=== PATIENT | female | born 1965 | race Hispanic/Latino ===

== ENCOUNTER 2018-07-11 13:41 | Emergency (ER) | payer BC ==
[2018-07-11 14:28] LABS: #Eosinphils 0.1 thou/uL (0.0-0.7); #Lymphocytes 2.9 thou/uL (1.20-3.40); #Monocytes 0.6 thou/uL (0.11-0.59); %Basophils 0.3 % (0.0-1.0); %Eosinophils 0.9 % (0.0-10.0); %Lymphocytes 27.1 % (21.0-51.0); %Monocytes 5.9 % (0.0-10.0); %Neutrophils 65.7 % (42.0-75.0); Hemoglobin 13.3 g/dL (12.0-16.0); Mean Corpuscular HGB CONC 33.5 g/dL (32.0-36.0); Mean Corpuscular Hemoglobin 31.1 pg (27.0-31.0); Mean Corpuscular Volume 92.6 fL (78.0-98.0); Mean Platelet Volume 7.5 fL (7.4-10.4); Platelet Count 364 thou/uL (130-400); RBC Distribution Width 12.2 % (11.5-14.5); Red Blood Cell (RBC) Count 4.29 mill/uL (4.20-5.40); White Blood Cell (WBC) Count 10.7 thou/uL (4.8-10.8)
[2018-07-11 14:50] LABS: ALT (SGPT) 29 U/L (8-55); AST (SGOT) 27 U/L (5-34); Albumin 3.9 g/dL (3.5-5.0); Alkaline Phosphatase 131 U/L (40-150); Anion Gap 14 mmol/L (10-20); BUN (Urea Nitrogen) 16 mg/dL (9.8-20.1); Bilirubin, Total 0.3 mg/dL (0.2-1.2); Calc. Creatinine Clearance 0 mL/min (70-130); Calcium 8.7 mg/dL (7.8-10.44); Carbon Dioxide 30 mmol/L (22-29); Chloride 100 mmol/L (98-107); Estimated GFR-MDRD 69; Globulin 3.6 g/dL (2.4-3.5); Glucose 198 mg/dL (70-105); Potassium 3.1 mmol/L (3.5-5.1); Protein, Total 7.5 g/dL (6.0-8.3); Sodium 141 mmol/L (136-145)
[2018-07-11] MEDS ORDERED: methylPREDNISolone Sod Succ/PF 125 MG/2 ML VIAL ONE (15:24)
== END 2018-07-11 15:56 | disposition home or self-care (01) ==
LOC: ERS 13:41
DX: R51 Headache (principal); I10 Essential (primary) hypertension; E11.9 Type 2 diabetes mellitus without complications; Z79.84 Long term (current) use of oral hypoglycemic drugs; Z79.82 Long term (current) use of aspirin; Z79.899 Other long term (current) drug therapy
CPT/HCPCS: 80053; 84484; 85025; 85652; 93005; 96374; J2930

== ENCOUNTER 2020-06-01 07:58 | Observation (INO) | payer BC ==
--- NOTE | 2020-06-01 08:40 | RAD ---
Exam: Chest one view HISTORY:Chest pain. Hypertension. Comparison: 10/21/2014 FINDINGS: Cardiac silhouette: Normal Aorta: Unremarkable Pulmonary vessels: Normal Costophrenic angles: Clear LUNGS: No masses or consolidation. Pneumothorax: None Osseous abnormalities: None IMPRESSION: No acute cardiopulmonary process.
[2020-06-01] MEDS ORDERED: Aspirin 325 MG TAB ONE (08:46)
[2020-06-01 09:00] LABS: #Basophils 0.1 thou/uL (0.0-0.2); #Eosinphils 0.1 thou/uL (0.0-0.7); #Lymphocytes 2.6 thou/uL (1.20-3.40); #Monocytes 0.8 thou/uL (0.11-0.59); #Neutrophils 9.2 thou/uL (1.40-6.50); %Basophils 0.7 % (0.0-1.0); %Eosinophils 1.1 % (0.0-10.0); %Lymphocytes 20.4 % (21.0-51.0); %Neutrophils 71.7 % (42.0-75.0); Hemoglobin 15.3 g/dL (12.0-16.0); Mean Corpuscular HGB CONC 33.4 g/dL (32.0-36.0); Mean Corpuscular Hemoglobin 32.1 pg (27.0-31.0); Mean Corpuscular Volume 96.1 fL (78.0-98.0); Mean Platelet Volume 8.3 fL (7.4-10.4); Platelet Count 333 thou/uL (130-400); RBC Distribution Width 11.8 % (11.5-14.5); Red Blood Cell (RBC) Count 4.76 mill/uL (4.20-5.40); White Blood Cell (WBC) Count 12.8 thou/uL (4.8-10.8)
[2020-06-01 09:22] LABS: Anion Gap 15 mmol/L (10-20); BUN (Urea Nitrogen) 18 mg/dL (9.8-20.1); Bilirubin, Total 0.8 mg/dL (0.2-1.2); Calc. Creatinine Clearance 0 mL/min (70-130); Calcium 8.9 mg/dL (7.8-10.44); Carbon Dioxide 29 mmol/L (22-29); Chloride 98 mmol/L (98-107); Estimated GFR-MDRD 85; Glucose 123 mg/dL (70-105); Potassium 3.1 mmol/L (3.5-5.1); Sodium 139 mmol/L (136-145)
[2020-06-01 09:23] LABS: ALT (SGPT) 29 U/L (8-55); AST (SGOT) 27 U/L (5-34); Albumin 4.1 g/dL (3.5-5.0); Alkaline Phosphatase 109 U/L (40-110); CK (CPK) 120 U/L (29-168); Globulin 3.7 g/dL (2.4-3.5); Lipase 36 U/L (8-78); Protein, Total 7.8 g/dL (6.0-8.3)
[2020-06-01] MEDS ORDERED: ADENOSINE 60 MG/20 ML VIAL ONE (09:39)
[2020-06-01] MEDS ORDERED: Potassium Chloride 20 MEQ TAB PO SCH (10:46)
[2020-06-01 12:14] LABS: Troponin I Less than 0.010 ng/mL (< 0.028)
--- NOTE | 2020-06-01 12:38 | PDOC.HHP ---
Hospitalist HPI - History of Present Illness Chest pain History of Present Illness: This is a 54-year-old female patient with a history of diabetes mellitus hypertension presenting with chest pain with left arm numbness. She is [place]-speaking. History was taken using a telemetry property management assistant She notes the symptoms first occurred a day ago and recurred this morning. Chest pain was brief up to 3/10 in intensity located in the lower retrosternal area, however radiated to her arm. This was of concern to her so she came to the ED for further evaluation. She did have associated nausea and minute vomi ting. She denied cough wheeze previous sore throat no swelling of extremities. At presentation her vitals are within normal limits, troponin, BMP were within normal limits. She was hypokalemic with potassium of 3.1, follow-up magnesium was 1.2. She had a mild leukocytosis of 12.8. Chest x-ray showed no acute cardiopulmonary process. Given her risk for coronary disease decision was made to admit. Hospitalist team was consulted for admission Hospitalist ROS - Review of Systems Constitutional: denies: fever, chills, sweats Respiratory: denies: cough, shortness of breath, hemoptysis, SOB with excertion Cardiovascular: reports: chest pain. denies: palpitations, orthopnea, par oxysmal noc. dyspnea Gastrointestinal: reports: nausea, vomiting. denies: abdominal pain, diarrhea Genitourinary: denies: dysuria, frequency, incontinence Skin: denies: rash, lesions, bruising Hospitalist History - Past Medical History Cardiac: reports: HTN Endocrine: reports: Diabetes - Past Surgical History Past Surgical History: reports: , Hernia Repair - Family History Family History: reports: diabetes mellitus - Social History Smoking Status: Never smoker Alcohol: reports: None Living Situation: With Family - Exam General Appearance: awake alert ENT: normocephalic atraumatic, moist mucosa Heart: no murmur, no gallops, normal peripheral pulses Respiratory: no wheezes, no rales, no ronchi, no tachypnea Gastrointestinal: soft, non-tender, non-distended, normal bowel sounds Extremities: no cyanosis, no clubbing, no edema Neurological: cranial nerve grossly intact, no focal deficits Musculoskeletal: normal tone Psychiatric: normal affect, normal behavior, A&O x 3 Hospitalist Results - Labs Result Diagrams: 06/01/20 08:31 06/01/20 08:31 Lab results: WBC 12.8 thou/uL (4.8-10.8) H 06/01/20 08:31 Hgb 15.3 g/dL (12.0-16.0) 06/01/20 08:31 Hct 45.7 % (36.0-47.0) 06/01/20 08:31 MCV 96.1 fL (78.0-98.0) 06/01/20 08:31 Plt Count 333 thou/uL (130-400) 06/01/20 08:31 Neutrophils % 71.7 % (42.0-75.0) 06/01/20 08:31 Sodium 139 mmol/L (136-145) 06/01/20 08:31 Potassium 3.1 mmol/L (3.5-5.1) L 06/01/20 08:31 Chloride 98 mmol/L (98-107) 06/01/20 08:31 Carbon Dioxide 29 mmol/L (22-29) 06/01/20 08:31 BUN 18 mg/dL (9.8-20.1) 06/01/20 08:31 Creatinine 0.72 mg/dL (0.6-1.1) 06/01/20 08:31 Glucose 123 mg/dL (70-105) H 06/01/20 08:31 Calcium 8.9 mg/dL (7.8-10.44) 06/01/20 08:31 Total Bilirubin 0.8 mg/dL (0.2-1.2) 06/01/20 08:31 AST 27 U/L (5-34) 06/01/20 08:31 ALT 29 U/L (8-55) 06/01/20 08:31 Alkaline Phosphatase 109 U/L (40-110) 06/01/20 08:31 Creatine Kinase 120 U/L (29-168) 06/01/20 08:31 Troponin I Less than 0.010 ng/mL (< 0.028) 06/01/20 11:21 B-Natriuretic Peptide 32.5 pg/mL (0-100) 06/01/20 08:31 Serum Total Protein 7.8 g/dL (6.0-8.3) 06/01/20 08:31 Albumin 4.1 g/dL (3.5-5.0) 06/01/20 08:31 Lipase 36 U/L (8-78) 06/01/20 08:31 Hospitalist H&P A/P - Plan Plan: This a 54-year-old female patient history of diabetes hypertension presenting with chest pain and some nausea. Troponin, BNP and chest x-ray and EKG essentially negative Chest pain Initial evaluation negative We will proceed to stress test and reevaluate. Diabetes mellitus Check A1c Correctional insulin. CODE STATUSfull code VT prophylaxisSCD Addendum: Nuclear stress test was negative for ventricular defect She will be discharged to go home
[2020-06-01] MEDS ORDERED: Magnesium Sulfate 4 GM in Sodium Chloride 0.9% 250 ML 250 ML IVPB SCH (12:45)
[2020-06-01] MEDS ORDERED: HumaLOG 300 UNITS/3 ML VIAL SC PRN (13:24)
[2020-06-01] MEDS ORDERED: Dextrose 5% in Water 1,000 ML IV PRN (13:24)
[2020-06-01] MEDS ORDERED: Dextrose 50% Abboject 50 ML SYRINGE SLOW IVP PRN (13:24)
[2020-06-01] MEDS ORDERED: Potassium Chloride 20 MEQ TAB ONE (15:08)
--- NOTE | 2020-06-01 15:10 | NM ---
Exam: Nuclear medicine cardiac stress only imaging HISTORY: Chest pain. COMPARISON: None. TECHNIQUE: Patient was administered 30.80 mCi of technetium 99m sestamibi. FINDINGS: Homogeneous distribution of the radiotracer on the attenuation correction images. End-diastolic volume is 70 mL. End-systolic volume is 12 mL. Cardiac gating: Normal wall motion and thickening. 83% ejection fraction. IMPRESSION: No evidence of a left ventricular defect. Transcribed Date/Time: 06/01/2020 3:14 PM
[2020-06-01 16:18] LABS: Hemoglobin A1c 6.5 % (4.0-6.0)
[2020-06-01 16:37] LABS: Troponin I Less than 0.010 ng/mL (< 0.028)
--- NOTE | 2020-06-01 22:26 | PDOC.DS.DS ---
Provider - Provider Date of Admission: 06/01/20 10:13 Date of Discharge: 06/01/20 Admitting Provider: Ben Olmstead MD Primary Care Physician: Maurizio De La Cruz MD Course - Hospital Course Hospital Course: 54-year-old female patient with a history of diabetes and hypertension who presented with chest pain recurrent over the past couple of days. At the time of evaluation her chest pain had stopped however given her risk factors of diabetes and hypertension stress test was performed. Stress test did not negative for ischemia. She was discharged home and started on pantoprazole, for GERD She will follow up with her primary care physician Resuscitation Status: 06/01/20 10:41 Resuscitation Status Routine Resuscitation Status: FULL: Full Resuscitation - Labs Lab Results: 06/01/20 08:31 06/01/20 08:31 Abnormal Lab Results - Last 48 hrs 06/01/20 08:31: WBC 12.8 H, MCH 32.1 H, Lymphocytes % 20.4 L, Neutrophils # 9.2 H, Monocytes # 0.8 H 06/01/20 08:31: Potassium 3.1 L, Globulin 3.7 H, Albumin/Globulin Ratio 1.1 L 06/01/20 11:21: Magnesium 1.2 L 06/01/20 15:53: Hemoglobin A1c 6.5 H - Physical Exam Physical Exam: The patient was seen and examined on the day of discharge. General: No acute distress. Cardiovascular: S1-S2 present and normal. Umbilical ulcer. Respiratory system: Air entry adequate bilaterally. Abdomen: Benign Extremities: No edema Problem - Discharge Plan Assessment: Chest pain: Stress test negative Discharge on BP and diabetic medications. Follow-up with PCP Plan - Discharge Medications Prescriptions: Pantoprazole [Protonix] 40 mg PO DAILY #30 tab Home Medications: Medication Instructions Recorded Confirmed Type Pantoprazole [Protonix] 40 mg PO DAILY #30 tab 06/01/20 Rx Allergies: No Known Allergies Allergy (Unverified 06/01/20 11:16) - Discharge Instructions Discharge Instructions:: See patient discharge instruction sheet for detailed teaching. Patient verbalizes understanding of medications and is able to verbalize follow-up care. See Discharge Plan for additional discharge information. Patient secured in private vehicle prior to departure.FOCUS: Transition from Acute Care after Discharge GOAL: Successful transition to care in the community YOUR TASKS: (1) review all information outlined in your discharge packet (2) follow any instructions outlined in your discharge packet (3) contact your primary care provider if you have questions or need additional assistanceSee patient discharge instruction sheet for detailed teaching. Patient verbalizes understanding of medications and is able to verbalize follow-up care. See Discharge Plan for additional discharge inform ation. Patient secured in private vehicle prior to departure. Activity:: Activity as Tolerated - Follow up Plan Referrals: Maurizio De La Cruz MD [Primary Care Provider] - 14 Days Disposition: HOME Quality - Care Measures CORE MEASURES:: N/A
== END 2020-06-01 17:14 | disposition home or self-care (01) ==
LOC: ERS 07:58 → ERHOLD 10:13
PROVIDERS: ADMIT Student in an Organized Health Care Education/Training Program; ATTEND Student in an Organized Health Care Education/Training Program
DX: R07.2 Precordial pain (principal); E11.9 Type 2 diabetes mellitus without complications; I10 Essential (primary) hypertension; E87.6 Hypokalemia; D72.829 Elevated white blood cell count, unspecified; Z79.84 Long term (current) use of oral hypoglycemic drugs; Z79.899 Other long term (current) drug therapy
CPT/HCPCS: 36415; 71045; 78452; 80053; 82550; 83036; 83690; 83735; 83880; 84484; 85025; 85379; 93005; 93017; A9500; G0378; J0153